=== PATIENT | male | born 1930 | race American Indian/Alaskan Native ===

== ENCOUNTER 2016-11-21 12:52 | Inpatient (IN) | payer MEDICARE ==
[~2016-11-21 12:52] MED LIST: GARAMYCIN ONE; NACL 0.9% 250ML 250 ML ONE
[2016-11-21] MEDS ORDERED: TYLENOL PO PRN (13:06)
[2016-11-21] MEDS ORDERED: DUONEB 0.5 MG-3 MG/3 ML SOLN IH PRN (13:06)
[2016-11-21] MEDS ORDERED: ZOFRAN IV PRN (13:06)
[2016-11-21] MEDS ORDERED: DULCOLAX PR PRN (13:06)
[2016-11-21] MEDS ORDERED: MILK OF MAGNESIA PO PRN (13:06)
[2016-11-21] MEDS ORDERED: ZOSYN/NS 4.5GM/100ML 4.5 GM/100 ML VIAL IV ONE (13:07)
[2016-11-21] MEDS ORDERED: NACL 0.9% 1000 ML 1,000 ML ONE (13:27)
[2016-11-21 13:38] LABS: Basophils % (Auto) 0.2 % (0.0-1.8); Eosinophils % (Auto) 0.2 % (0.0-4.3); Hematocrit 33.6 % (35.5-45.6); Mean Corpuscular HGB Conc 33 % (32-34); Mean Corpuscular Hemoglobin 30 pg (28-32); Mean Corpuscular Volume 92 fl (84-94); Platelet Count 235 K/mm3 (140-440); Red Blood Count 3.67 M/mm3 (3.65-5.03); Red Cell Distribution Width 14.5 % (13.2-15.2); White Blood Count 14.2 K/mm3 (4.5-11.0)
[2016-11-21] MEDS ORDERED: PEPCID IV ONE (13:45)
[2016-11-21] MEDS ORDERED: REGLAN ONE (13:45)
[2016-11-21 13:51] LABS: INR 2.26 (0.87-1.13); Partial Thromboplastin Time 38.3 Sec. (24.2-36.6)
[2016-11-21 14:00] LABS: Albumin 3.3 g/dL (3.9-5); BUN/Creatinine Ratio 22.77; Calcium 8.6 mg/dL (8.4-10.2); Potassium 4.4 mmol/L (3.6-5.0)
[2016-11-21] MEDS ORDERED: VANCOMYCIN/NS 1 GM/250 ML 1 GM/250 ML BAG IV NR (14:00)
[2016-11-21] MEDS ORDERED: ZOSYN/NS 3.375GM/50ML 3.375 GM/50 ML BAG IV ONE (14:00)
[2016-11-21 14:25] LABS: Total Protein 6.5 g/dL (6.3-8.2)
--- NOTE | 2016-11-21 14:31 | Anesthesia Day of Surgery ---
Anesthesia Day of Surgery - Day of Surgery Patient Examined: Yes Patient H&P Reviewed: Yes Patient is NPO: Yes (since 10 am - 2 bites of food prior to ten)
--- NOTE | 2016-11-21 14:31 | Anesthesia Consultation ---
Anesthesia Consult and Med Hx - Airway Anesthetic Teeth Evaluation: Partials ROM Head & Neck: Adequate Mental/Hyoid Distance: Adequate Mallampati Class: Class II Intubation Access Assessment: Probably Good - Pre-Operative Health Status ASA Pre-Surgery Classification: ASA3 Proposed Anesthetic Plan: General - Cardiovascular System Hx Hypertension: Yes Hx Coronary Artery Disease: Yes Hx Percutaneous Transluminal Coronary Angioplasty (PTCA): Yes (cardiac stent 2000) - Central Nervous System Hx Neuromuscular Disorder: Yes (osteoarthritis) - Gastrointestinal Hx Ulcer: No (prostate) - Endocrine Hx Non-Insulin Dependent Diabetes: Yes - Additional Comments Anesthesia Medical History Comments: prostate enlrgement
[2016-11-21] MEDS ORDERED: DIPRIVAN 10 MG/ML IV ONE (14:33)
[2016-11-21] MEDS ORDERED: SUBLIMAZE ONE (14:34)
[2016-11-21] MEDS ORDERED: NEOSTIGMINE ONE (14:34)
[2016-11-21] MEDS ORDERED: NACL 0.9% 250ML IV ONE (15:21)
[2016-11-21] MEDS ORDERED: ZEMURON IV ONE (15:26)
[2016-11-21] MEDS ORDERED: XYLOCAINE MPF 2% ONE (15:26)
[2016-11-21] MEDS ORDERED: ROBINUL ONE (15:27)
[2016-11-21] MEDS ORDERED: ZOFRAN ONE (15:41)
[2016-11-21] MEDS ORDERED: NORCO 5/325 PO PRN (15:56)
[2016-11-21] MEDS ORDERED: D5W/0.45% NACL/KCL 20 MEQ 20 MEQ/1,000 ML BAG IV SCH (16:00)
[2016-11-21] MEDS ORDERED: VANCOMYCIN/NS 1 GM/250 ML 1 GM/250 ML BAG IV SCH (16:00)
--- NOTE | 2016-11-21 16:05 | Post Operative Note ---
Date of procedure: 11/21/16 Pre-op diagnosis: cellulitis severe epididymitis Post-op diagnosis: same Findings: severe erythems eary abcess Procedure: L scrotal abcess r orch Anesthesia: GETA Surgeon: LEONIE CID Estimated blood loss: none Pathology: list (r testes) Specimen disposition: to lab Condition: stable Disposition: PACU
[2016-11-21] MEDS ORDERED: PROVENTIL IH ONE (16:25)
[2016-11-21] MEDS ORDERED: PROVENTIL IH PRN (16:29)
--- NOTE | 2016-11-21 19:50 | Operative Report ---
PREOPERATIVE DIAGNOSES: Scrotal cellulitis, epididymitis, left side with extending to the abdominal wall, impending Renetta's gangrene. POSTOPERATIVE DIAGNOSES: Scrotal cellulitis, epididymitis, left side with extending to the abdominal wall, impending Renetta's gangrene with severe scrotal cellulitis and epididymitis. PROCEDURE: Left scrotal exploration cultures, drainage of scrotum with left orchiectomy. SURGEON: Woody Alvares MD ANESTHESIA: General. FINDINGS: This is a gentleman who presented with severe agonizing left scrotal pain, swelling of the scrotum, penis and lower abdominal wall with erythema and heat and intermittent chills. He now presents for treatment. He is diabetic. DESCRIPTION OF PROCEDURE: The patient brought to the operating room and placed on the operating table. Following induction of anesthesia, placed in supine position, prepped and draped in usual sterile fashion. Tomlin catheter was placed and horizontal incision made over the swollen left hemiscrotum. The scrotal fascia layers weeped with edema and fluid. This incision was carried through the scrotum down to the tunica vaginalis. This was opened. There was some dark yellow fluid. Cultures were taken. The testis and the lower pole of the epididymis was totally adherent to the scrotal fascia. The testis size was approximately 2 cm at max. It was very small, but the cord was very thickened and edematous. With blunt and sharp dissection, we freed off the epididymis and testis and cord. The gubernaculum was tied and the cord was divided into two segments and triply tied and ligated. Specimen was removed. Almost immediately there was a markedly improved skin, less edema, better blood pressure and lower temperature. Wound was copiously irrigated. The patient tolerated the procedure well. A Javier drain was placed in dependent portion of the scrotum. Superficial fascia was closed with 2-0 chromic and skin with 2-0 chromic. The patient tolerated the procedure well. No significant complications. Minimal blood loss and was brought to recovery in stable condition. JOB# [id number] LINA/SUZAN
[2016-11-21] MEDS: PEPCID IV SCH (21:51)
[2016-11-21] MEDS ORDERED: ZOSYN/NS 4.5GM/100ML 4.5 GM/100 ML VIAL IV SCH (22:00)
--- NOTE | 2016-11-21 23:52 | History and Physical Report ---
History of Present Illness Date of examination: 11/21/16 Date of admission: 11/21/16 13:08 Chief complaint: Chief complaint: scrotal abscess. 1 week. History of present illness: History of present illness: 86-year-old male with history of hypertension and glaucoma COPD type 2 diabetes diagnosed hypertriglyceridemia and have more I hypertension gastroesophageal reflux disease comes in for scrotal abscess incision and drainage. Patient postop being admitted to the medical service and surgery with Dr. Cameron to follow up with the patient. Patient has been running high fevers and severe scrotal edema present. Past History Past Medical History: COPD, GERD, hypertension, hyperlipidemia Past Surgical History: Other (peripheral artery surgeries.) Social history: smoking (smokes about 5 cigarettes a day.) Family history: hypertension Medications and Allergies Allergies Allergy/AdvReac Type Severity Reaction Status Date / Time No Known Drug Allergies Allergy Unknown Verified 11/21/16 13:08 Home Medications Medication Instructions Recorded Confirmed Last Taken Type Albuterol Sulfate [Proair Hfa] 1 puff DAILY 11/21/16 11/21/16 11/20/16 History Bimatoprost 0.01%(Nf) [Lumigan 1 drop OU DAILY 11/21/16 11/21/16 11/20/16 History 0.01%(Nf)] Dorzolamide HCl/Timolol Maleat 1 drop OU DAILY 11/21/16 11/21/16 11/20/16 History [Dorzolamide-Timolol Eye Drops] Fenofibrate Nanocrystallized 145 mg PO DAILY 11/21/16 11/21/16 11/20/16 History [Fenofibrate] Hydrochlorothiazide [HCTZ] 25 mg PO DAILY 11/21/16 11/21/16 3 Months Ago History Levalbuterol Tartrate [Xopenex Hfa] 1 puff IH DAILY 11/21/16 11/21/16 11/20/16 History Nateglinide [Starlix] 120 mg PO DAILY 11/21/16 11/21/16 11/20/16 History Pantoprazole [Protonix TAB] 20 mg QDAY 11/21/16 11/21/16 11/20/16 History Valsartan [Valsartan] 80 mg PO DAILY 11/21/16 11/21/16 11/20/16 History Warfarin Sodium [Warfarin Sodium] 5 mg PO DAILY 11/21/16 11/21/16 11/21/16 10: 00 History traMADol [Ultram] 50 mg PO Q6HR PRN 11/21/16 11/21/16 11/20/16 History Active Meds: Active Medications Acetaminophen (Tylenol) 650 mg PO Q4H PRN PRN Reason: Pain MILD(1-3)/Fever >100.5/DIAZ Acetaminophen/Hydrocodone Bitart ([place]odge 5/325) 2 each PO Q6H PRN PRN Reason: Pain, Moderate (4-6) Albuterol (Proventil) 2.5 mg IH PRN PRN PRN Reason: Shortness Of Breath Last Admin: 11/21/16 16:36 Dose: 2.5 mg Albuterol/Ipratropium (Duoneb 0.5 Mg-3 Mg/3 Ml Soln) 1 ampul IH Q6HRT PRN PRN Reason: Wheezing Bisacodyl (Dulcolax) 10 mg MT QDAY PRN PRN Reason: Constipation unrelieved by [facility] Famotidine (Pepcid) 20 mg IV BID [facility] Last Admin: 11/21/16 21:51 Dose: 20 mg Potassium Chloride/Dextrose/Sod Cl (D5w/0.45% Nacl/Kcl 20 Meq) 20 meq in 1,000 mls @ 125 mls/hr IV DIRECT BENEDICTO Vancomycin HCl (Vancomycin/Ns 1 Gm/250 Ml) 1 gm in 250 mls @ 166.667 mls/hr IV Q24H [facility] Piperacillin Sod/Tazobactam Sod (Zosyn/Ns 2.25 Gm/50ml) 2.25 gm in 50 mls @ 100 mls/hr IV Q6H [facility] Insulin Aspart (Novolog) 0 units SUB-Q ACHS BENEDICTO PRN Reason: Protocol Magnesium Hydroxide (Milk Of Magnesia) 30 ml PO Q4H PRN PRN Reason: Constipation Ondansetron HCl (Zofran) 4 mg IV Q8H PRN PRN Reason: N/V unrelieved by Reglan Review of Systems All systems: negative Constitutional: no weight loss, no weight gain Ears, nose, mouth and throat: no dysphagia, no hoarseness, no sore throat Cardiovascular: chest pain, orthopnea Respiratory: dyspnea on exertion, congestion Gastrointestinal: nausea, vomiting, diarrhea Genitourinary Male: dysuria, hematuria, no flank pain, no discharge, no urinary hesitancy Musculoskeletal: no neck stiffness, no neck pain Integumentary: pruritis, redness (scrotum.) Neurological: seizures, syncope Psychiatric: anxiety, paranoia, depression Endocrine: no cold intolerance, no heat intolerance, no polyphagia, no excessive thirst, no polydipsia Hematologic/Lymphatic: no easy bruising, no easy bleeding Allergic/Immunologic: no urticaria, no allergic rhinitis, no wheezing Exam - Constitutional Vitals: Temp Pulse Resp BP Pulse Ox 98.1 F 73 18 118/76 95 11/21/16 20:00 11/21/16 20:00 11/21/16 20:00 11/21/16 20:00 11/21/16 21:02 General appearance: Present: no acute distress, well-nourished - EENT Eyes: Present: PERRL ENT: hearing intact, clear oral mucosa - Neck Neck: Present: supple, normal ROM - Respiratory Respiratory effort: normal Respiratory: bilateral: CTA - Cardiovascular Heart Sounds: Present: S1 & S2. Absent: rub, click - Extremities Extremities: pulses symmetrical, No edema Peripheral Pulses: within normal limits - Abdominal General gastrointestinal: Present: soft, non-tender, non-distended, normal bowel sounds Male genitourinary: Present: normal - Integumentary Integumentary: Present: clear, warm, dry - Musculoskeletal Musculoskeletal: gait normal, strength equal bilaterally - Psychiatric Psychiatric: appropriate mood/affect, intact judgment & insight - Neurologic Neurologic: CNII-XII intact, moves all extremities Results - Labs CBC & Chem 7: 11/21/16 13:31 11/21/16 13:05 Labs: Laboratory Last Values WBC 14.2 K/mm3 (4.5-11.0) H 11/21/16 13:31 RBC 3.67 M/mm3 (3.65-5.03) 11/21/16 13:31 Hgb 11.0 gm/dl (11.8-15.2) L 11/21/16 13:31 Hct 33.6 % (35.5-45.6) L 11/21/16 13:31 MCV 92 fl (84-94) 11/21/16 13:31 MCH 30 pg (28-32) 11/21/16 13:31 MCHC 33 % (32-34) 11/21/16 13:31 RDW 14.5 % (13.2-15.2) 11/21/16 13:31 Plt Count 235 K/mm3 (140-440) 11/21/16 13:31 Lymph % (Auto) 6.5 % (13.4-35.0) L 11/21/16 13:31 [place] % (Auto) 9.1 % (0.0-7.3) H 11/21/16 13:31 Eos % (Auto) 0.2 % (0.0-4.3) 11/21/16 13:31 Baso % (Auto) 0.2 % (0.0-1.8) 11/21/16 13:31 Lymph # 0.9 K/mm3 (1.2-5.4) L 11/21/16 13:31 [place] # 1.3 K/mm3 (0.0-0.8) H 11/21/16 13:31 Eos # 0.0 K/mm3 (0.0-0.4) 11/21/16 13:31 Baso # 0.0 K/mm3 (0.0-0.1) 11/21/16 13:31 Seg Neutrophils % 84.0 % (40.0-70.0) H 11/21/16 13:31 Seg Neutrophils # 11.9 K/mm3 (1.8-7.7) H 11/21/16 13:31 PT 25.0 Sec. (12.2-14.9) H 11/21/16 13:31 INR 2.26 (0.87-1.13) H 11/21/16 13:31 APTT 38.3 Sec. (24.2-36.6) H 11/21/16 13:31 Sodium 138 mmol/L (137-145) 11/21/16 13:05 Potassium 4.4 mmol/L (3.6-5.0) 11/21/16 13:05 Chloride 101.0 mmol/L (98-107) 11/21/16 13:05 Carbon Dioxide 21 mmol/L (22-30) L 11/21/16 13:05 Anion Gap 20 mmol/L 11/21/16 13:05 BUN 41 mg/dL (9-20) H 11/21/16 13:05 Creatinine 1.8 mg/dL (0.8-1.5) H 11/21/16 13:05 Estimated GFR 44 ml/min 11/21/16 13:05 BUN/Creatinine Ratio 22.77 % 11/21/16 13:05 Glucose 107 mg/dL (75-100) H 11/21/16 13:05 POC Glucose 199 (70-105) H 11/21/16 22:13 Calcium 8.6 mg/dL (8.4-10.2) 11/21/16 13:05 Total Bilirubin 1.0 mg/dL (0.1-1.2) 11/21/16 13:05 AST 55 units/L (5-40) H 11/21/16 13:05 ALT 33 units/L (7-56) 11/21/16 13:05 Alkaline Phosphatase 55 units/L (35-129) 11/21/16 13:05 Total Protein 6.5 g/dL (6.3-8.2) 11/21/16 13:05 Albumin 3.3 g/dL (3.9-5) L 11/21/16 13:05 Albumin/Globulin Ratio 1.0 % 11/21/16 13:05 Blood Type A POSITIVE 11/21/16 14:00 Antibody Screen Negative 11/21/16 14:00 Assessment and Plan Advance Directives: Yes - Patient Problems (1) Cellulitis of scrotum Current Visit: Yes Status: Acute Plan to address problem: Patient with first-time episode of scrotal swelling and redness and pain. Comes in for incision and drainage. Incision and drainage done by Dr. Alvares. Broad spectrum antibiotics Zosyn started for the scrotal cellulitis and abscess. (2) HTN (hypertension) Current Visit: Yes Status: Chronic Qualifiers: Hypertension type: essential hypertension Qualified Code(s): I10 - Essential (primary) hypertension Plan to address problem: Continue Diovan 80 mg once a day. (3) Glaucoma Current Visit: Yes Status: Acute Qualifiers: Glaucoma type: G Open angle glaucoma type: O Primary angle closure glaucoma type: P Laterality: L Glaucoma stage: G Plan to address problem: Continue eyedrops. (4) Hypertriglyceridemia Current Visit: Yes Status: Chronic Plan to address problem: Continue fenofibrate (5) T2DM (type 2 diabetes mellitus) Current Visit: Yes Status: Chronic Qualifiers: Diabetes mellitus complication status: without complication Diabetes mellitus complication detail: D Diabetic retinopathy severity: D Proliferative retinopathy type: P Diabetes mellitus macular edema: D Diabetes mellitus email administrator insulin use: without snf use Laterality: L Chronic kidney disease stage: C Qualified Code(s): E11.9 - Type 2 diabetes mellitus without complications Plan to address problem: Patient on Starlix which is not available in the hospital will start him on glimepiride 2 mg once a day and give him coverage. (6) GERD (gastroesophageal reflux disease) Current Visit: Yes Status: Chronic Qualifiers: Esophagitis presence: without esophagitis Qualified Code(s): K21.9 - Gastro -esophageal reflux disease without esophagitis Plan to address problem: Continue Protonix 40 mg once a day. (7) DVT prophylaxis Current Visit: Yes Status: Acute Plan to address problem: Patient on Lovenox 40 mg subcutaneous once daily.
[2016-11-21] MEDS: ZOSYN/NS 2.25 GM/50ML 2.25 GM/50 ML BAG IV SCH ×2 (23:53→23:57)
[2016-11-21] MEDS: NOVOLOG SUB-Q SCH (23:53)
[2016-11-22] MEDS: VANCOMYCIN/NS 1 GM/250 ML 1 GM/250 ML BAG IV SCH (04:32)
[2016-11-22] MEDS: ZOSYN/NS 2.25 GM/50ML 2.25 GM/50 ML BAG IV SCH ×3 (06:07→18:05)
[2016-11-22] MEDS: NOVOLOG SUB-Q SCH ×4 (07:30→21:18)
[2016-11-22] MEDS ORDERED: PROAIR IH PRN (07:44)
--- NOTE | 2016-11-22 08:57 | Progress Note ---
Assessment and Plan markedly improved edema down 70 % grayson replaced continue iv abs home thursday if continues to improve Subjective Date of service: 11/22/16 Principal diagnosis: scrotal abcess Objective - Constitutional Vitals: Vital Signs - 12hr 11/21/16 11/22/16 21:02 00:34 Temperature 98.1 F Pulse Rate [ 68 Right] Respiratory 18 Rate Blood Pressure 120/56 [Right Arm] O2 Sat by Pulse 95 98 Oximetry General appearance: Present: no acute distress - Neck Neck: supple - Respiratory Respiratory effort: normal Extremities: no ischemia - Genitourinary Male genitourinary: penile edema - Labs CBC & Chem 7: 11/21/16 13:31 11/21/16 13:05 Labs: Abnormal lab results 11/21/16 11/21/16 11/21/16 Range/Units 13:05 13:22 13:31 WBC 14.2 H (4.5-11.0) K/mm3 Hgb 11.0 L (11.8-15.2) gm/dl Hct 33.6 L (35.5-45.6) % Lymph % (Auto) 6.5 L (13.4-35.0) % [place] % (Auto) 9.1 H (0.0-7.3) % Lymph # 0.9 L (1.2-5.4) K/mm3 [place] # 1.3 H (0.0-0.8) K/mm3 Seg Neutrophils % 84.0 H (40.0-70.0) % Seg Neutrophils # 11.9 H (1.8-7.7) K/mm3 PT (12.2-14.9) Sec. INR (0.87-1.13) APTT (24.2-36.6) Sec. Carbon Dioxide 21 L (22-30) mmol/L BUN 41 H (9-20) mg/dL Creatinine 1.8 H (0.8-1.5) mg/dL Glucose 107 H (75-100) mg/dL POC Glucose 111 H (70-105) AST 55 H (5-40) units/L Albumin 3.3 L (3.9-5) g/dL 11/21/16 11/21/16 Range/Units 13:31 22:13 WBC (4.5-11.0) K/mm3 Hgb (11.8-15.2) gm/dl Hct (35.5-45.6) % Lymph % (Auto) (13.4-35.0) % [place] % (Auto) (0.0-7.3) % Lymph # (1.2-5.4) K/mm3 [place] # (0.0-0.8) K/mm3 Seg Neutrophils % (40.0-70.0) % Seg Neutrophils # (1.8-7.7) K/mm3 PT 25.0 H (12.2-14.9) Sec. INR 2.26 H (0.87-1.13) APTT 38.3 H (24.2-36.6) Sec. Carbon Dioxide (22-30) mmol/L BUN (9-20) mg/dL Creatinine (0.8-1.5) mg/dL Glucose (75-100) mg/dL POC Glucose 199 H (70-105) AST (5-40) units/L Albumin (3.9-5) g/dL
[2016-11-22] MEDS ORDERED: NACL 0.45% 500 ML IV SCH (09:00)
[2016-11-22] MEDS ORDERED: NATEGLINIDE 120 MG PO SCH (10:00)
[2016-11-22] MEDS: PEPCID IV SCH ×2 (10:00→21:12)
[2016-11-22] MEDS ORDERED: LEVALBUTEROL TARTRATE IH SCH (10:00)
[2016-11-22] MEDS ORDERED: BIMATOPROST 0.01% OU SCH (10:00)
[2016-11-22] MEDS ORDERED: HCTZ PO SCH (10:00)
[2016-11-22] MEDS: PROTONIX PO SCH (10:00)
[2016-11-22] MEDS ORDERED: NON-FORMULARY (Dorzolamide Hcl/Timolol Maleat [Dorzolamide-Timolol Eye Drops] 1 DROP) OU SCH (10:00)
[2016-11-22] MEDS: TRICOR PO SCH (10:30)
[2016-11-22] MEDS: PROVENTIL IH SCH (10:40)
--- NOTE | 2016-11-22 12:48 | Progress Note ---
Assessment and Plan Assessment and plan: 86-year-old male with history of hypertension and glaucoma COPD type 2 diabetes diagnosed hypertriglyceridemia and have more I hypertension gastroesophageal reflux disease comes in for scrotal abscess incision and drainage. Patient postop admitted to the medical service and surgery with Dr. Cameron to follow up with the patient. Patient has been running high fevers and severe scrotal edema present. - Patient Problems (1) Cellulitis of scrotum Current Visit: Yes Status: Acute Plan to address problem: Patient with first-time episode of scrotal swelling and redness and pain. Status post incision and drainage by Dr. Alvares. Broad spectrum antibiotics Zosyn started for the scrotal cellulitis and abscess. ID consult. Tomlin catheter is changed today. Swelling and edema improved per her urologist. Hope to discharge in a.m. if remains fever free. Cultures reviewed no growth at this time. No urinary culture was obtained. Case discussed with urologist today. (2) HTN (hypertension) Current Visit: Yes Status: Chronic Qualifiers: Hypertension type: essential hypertension Qualified Code(s): I10 - Essential (primary) hypertension Plan to address problem: Continue Diovan 80 mg once a day. (3) Glaucoma Current Visit: Yes Status: Acute Qualifiers: Glaucoma type: G Open angle glaucoma type: O Primary angle closure glaucoma type: P Laterality: L Glaucoma stage: G Plan to address problem: Continue eyedrops. (4) Hypertriglyceridemia Current Visit: Yes Status: Chronic Plan to address problem: Continue fenofibrate (5) T2DM (type 2 diabetes mellitus) Current Visit: Yes Status: Chronic Qualifiers: Diabetes mellitus complication status: without complication Diabetes mellitus complication detail: D Diabetic retinopathy severity: D Proliferative retinopathy type: P Diabetes mellitus macular edema: D Diabetes mellitus keno terminal operator insulin use: without keno terminal operator use Laterality: L Chronic kidney disease stage: C Qualified Code(s): E11.9 - Type 2 diabetes mellitus without complications Plan to address problem: Patient on Starlix which is not available in the hospital will start him on glimepiride 2 mg once a day and give him coverage. (6) GERD (gastroesophageal reflux disease) Current Visit: Yes Status: Chronic Qualifiers: Esophagitis presence: without esophagitis Qualified Code(s): K21.9 - Gastro -esophageal reflux disease without esophagitis Plan to address problem: Continue Protonix 40 mg once a day. (7) Debility He reports multiple falls in the past. Ambulates with a walker. Will obtain PT evaluation and treat. He felt it was due to the infection. (8) DVT prophylaxis Current Visit: Yes Status: Acute Plan to address problem: Patient on Lovenox 40 mg subcutaneous once daily. Plan of care discussed in detail with patient and family member at the bedside. History Interval history: Patient seen and examined, tolerating diet. not much pain. reports multiple falls prior to admission and has been going on for a fews. Hospitalist Physical - Physical exam Narrative exam: VITAL SIGNS: Reviewed. GENERAL: The patient appeared well nourished and normally developed. Vital signs as documented. HEAD: No signs of head trauma. EYES: Pupils are equal. Extraocular motions intact. EARS: Hearing grossly intact. MOUTH: Oropharynx is normal. NECK: No adenopathy, no JVD. CHEST: Chest with clear breath sounds bilaterally. No wheezes, rales, or rhonchi. CARDIAC: Regular rate and rhythm. S1 and S2, without murmurs, gallops, or rubs. VASCULAR: No Edema. Peripheral pulses normal and equal in all extremities. ABDOMEN: Soft, without detectable tenderness. No sign of distention. No rebound or guarding, and no masses palpated. Bowel Sounds normal. MUSCULOSKELETAL: Good range of motion of all major joints. Extremities without clubbing, cyanosis or edema. NEUROLOGIC EXAM: Alert and oriented x 3. No focal sensory or strength deficits. Speech normal. Follows commands. PSYCHIATRIC: Mood normal. SKIN: dressing in place at the scrotal area : scrotal edema. Tomlin, Some tenderness. - Constitutional Vitals: Temp Pulse Resp BP Pulse Ox 98.1 F 68 18 120/56 98 11/22/16 00:34 11/22/16 00:34 11/22/16 00:34 11/22/16 00:34 11/22/16 00:34 General appearance: Present: no acute distress Results - Labs CBC & Chem 7: 11/21/16 13:31 11/21/16 13:05 Labs: Laboratory Last Values WBC 14.2 K/mm3 (4.5-11.0) H 11/21/16 13:31 RBC 3.67 M/mm3 (3.65-5.03) 11/21/16 13:31 Hgb 11.0 gm/dl (11.8-15.2) L 11/21/16 13:31 Hct 33.6 % (35.5-45.6) L 11/21/16 13:31 MCV 92 fl (84-94) 11/21/16 13:31 MCH 30 pg (28-32) 11/21/16 13:31 MCHC 33 % (32-34) 11/21/16 13:31 RDW 14.5 % (13.2-15.2) 11/21/16 13:31 Plt Count 235 K/mm3 (140-440) 11/21/16 13:31 Lymph % (Auto) 6.5 % (13.4-35.0) L 11/21/16 13:31 [place] % (Auto) 9.1 % (0.0-7.3) H 11/21/16 13:31 Eos % (Auto) 0.2 % (0.0-4.3) 11/21/16 13:31 Baso % (Auto) 0.2 % (0.0-1.8) 11/21/16 13:31 Lymph # 0.9 K/mm3 (1.2-5.4) L 11/21/16 13:31 [place] # 1.3 K/mm3 (0.0-0.8) H 11/21/16 13:31 Eos # 0.0 K/mm3 (0.0-0.4) 11/21/16 13:31 Baso # 0.0 K/mm3 (0.0-0.1) 11/21/16 13:31 Seg Neutrophils % 84.0 % (40.0-70.0) H 11/21/16 13:31 Seg Neutrophils # 11.9 K/mm3 (1.8-7.7) H 11/21/16 13:31 PT 25.0 Sec. (12.2-14.9) H 11/21/16 13:31 INR 2.26 (0.87-1.13) H 11/21/16 13:31 APTT 38.3 Sec. (24.2-36.6) H 11/21/16 13:31 Sodium 138 mmol/L (137-145) 11/21/16 13:05 Potassium 4.4 mmol/L (3.6-5.0) 11/21/16 13:05 Chloride 101.0 mmol/L (98-107) 11/21/16 13:05 Carbon Dioxide 21 mmol/L (22-30) L 11/21/16 13:05 Anion Gap 20 mmol/L 11/21/16 13:05 BUN 41 mg/dL (9-20) H 11/21/16 13:05 Creatinine 1.8 mg/dL (0.8-1.5) H 11/21/16 13:05 Estimated GFR 44 ml/min 11/21/16 13:05 BUN/Creatinine Ratio 22.77 % 11/21/16 13:05 Glucose 107 mg/dL (75-100) H 11/21/16 13:05 POC Glucose 199 (70-105) H 11/21/16 22:13 Calcium 8.6 mg/dL (8.4-10.2) 11/21/16 13:05 Total Bilirubin 1.0 mg/dL (0.1-1.2) 11/21/16 13:05 AST 55 units/L (5-40) H 11/21/16 13:05 ALT 33 units/L (7-56) 11/21/16 13:05 Alkaline Phosphatase 55 units/L (35-129) 11/21/16 13:05 Total Protein 6.5 g/dL (6.3-8.2) 11/21/16 13:05 Albumin 3.3 g/dL (3.9-5) L 11/21/16 13:05 Albumin/Globulin Ratio 1.0 % 11/21/16 13:05 Blood Type A POSITIVE 11/21/16 14:00 Antibody Screen Negative 11/21/16 14:00
[2016-11-22] MEDS: ZOSYN/NS 4.5GM/100ML 4.5 GM/100 ML VIAL IV SCH ×2 (14:00→15:00)
[2016-11-22 15:14] LABS: Anion Gap 16 mmol/L; Blood Urea Nitrogen 22 mg/dL (9-20); Carbon Dioxide 21 mmol/L (22-30); Chloride 106.9 mmol/L (98-107); Glucose 139 mg/dL (75-100); Potassium 4.1 mmol/L (3.6-5.0); Sodium 140 mmol/L (137-145)
[2016-11-22] MEDS ORDERED: XALATAN 0.005% OU SCH (18:00)
[2016-11-23] MEDS: ZOSYN/NS 4.5GM/100ML 4.5 GM/100 ML VIAL IV SCH ×3 (00:23→14:00)
[2016-11-23] MEDS: ZOSYN/NS 2.25 GM/50ML 2.25 GM/50 ML BAG IV SCH ×3 (00:25→12:00)
[2016-11-23] MEDS: VANCOMYCIN/NS 1 GM/250 ML 1 GM/250 ML BAG IV SCH (01:59)
--- NOTE | 2016-11-23 07:00 | Discharge Summary ---
Providers - Providers Date of Admission: 11/21/16 13:08 Date of discharge: 11/23/16 Attending physician: TARI COLLINS MD 11/21/16 13:05 Consult to Anesthesiology [CONS] Routine Consulting Provider: KAYLEE ANESTHESIA BRUCE MURO Reason For Exam: ADD ON SURGERY FOR TODAY 11/21/16 14:57 Consult to Physician [CONS] Routine Consulting Provider: LEONIE CID Reason For Exam: SCROTAL ABCESS,DM,HX BLOOD CLOTS Place consult to:: NED Notified:: NO 11/21/16 15:56 Consult to Physician [CONS] Stat Consulting Provider: Reason For Exam: diabetes Place consult to:: ned Notified:: yes Was contact made?: Yes 11/22/16 12:40 Consult to Physician [CONS] Routine Consulting Provider: JEAN-PIERRE MORTON Reason For Exam: epdidmytis 11/22/16 12:46 Physical Therapy Evaluation and Treat [CONS] Routine Comment: Reason For Exam: debility Primary care physician: [employer]EC[employer]IVE [employer]ER Hospitalization Reason for admission: epididymitis Hospital course: Patient is an 86-year-old male with history of hypertension and glaucoma COPD type 2 diabetes diagnosed hypertriglyceridemia and have more I hypertension gastroesophageal reflux disease comes in for scrotal abscess incision and drainage. Patient postop admitted to the medical service and surgery with Dr. Cameron to follow up with the patient. Patient has been running high fevers and severe scrotal edema present requiring intervention. Post intervention drain was placed with good drainage. Pain improved significantly. The patient today' s clinically stable for discharge renal function was abnormal initially but with IV fluids this returned also to baseline. He is to complete antibiotics with Keflex outpatient. And to follow with urology also discussed with him the importance of monitoring his Coumadin level considering that he is not on antibiotics patient verbalized understanding. Physical therapy was also arranged for home due to ablation issues which has been experiencing in the past. Grayson catheter will be discontinued outpatient. - Patient Problems (1) Cellulitis of scrotum (2) epididymitis (3) HTN (hypertension) (4) Glaucoma (5) Hypertriglyceridemia (6) T2DM (type 2 diabetes mellitus) (7) GERD (gastroesophageal reflux disease) (8) Debility (9) acute kidney injury likely secondary to vasomotor nephropathy present on admission Disposition: DC/TX HOME UNDER HOME HEALTH Time spent for discharge: 35 mins Core Measure Documentation - Palliative Care Palliative Care/ Comfort Measures: Not Applicable - Core Measures Any of the following diagnoses?: none - VTE Discharge Requirements Deep Vein Thrombosis/Pulmonary Embolism Present on Admission: No Exam - Physical Exam Narrative exam: VITAL SIGNS: Reviewed. GENERAL: The patient appeared well nourished and normally developed. Vital signs as documented. HEAD: No signs of head trauma. EYES: Pupils are equal. Extraocular motions intact. EARS: Hearing grossly intact. MOUTH: Oropharynx is normal. NECK: No adenopathy, no JVD. CHEST: Chest with clear breath sounds bilaterally. No wheezes, rales, or rhonchi. CARDIAC: Regular rate and rhythm. S1 and S2, without murmurs, gallops, or rubs. VASCULAR: No Edema. Peripheral pulses normal and equal in all extremities. ABDOMEN: Soft, without detectable tenderness. No sign of distention. No rebound or guarding, and no masses palpated. Bowel Sounds normal. MUSCULOSKELETAL: Good range of motion of all major joints. Extremities without clubbing, cyanosis or edema. NEUROLOGIC EXAM: Alert and oriented x 3. No focal sensory or strength deficits. Speech normal. Follows commands. PSYCHIATRIC: Mood normal. SKIN: dressing in place at the scrotal area : scrotal edema. Grayson, Some tenderness. - Constitutional Vitals: Temp Pulse Resp BP Pulse Ox 98.0 F 66 20 135/66 97 11/23/16 04:00 11/23/16 04:00 11/23/16 04:00 11/23/16 04:00 11/23/16 04:00 Plan Activity: advance as tolerated, fall precautions Diet: diabetic Special Instructions: record daily BP diary, record blood sugar diary Additional Instructions: grayson to be removed by Urologist at the Office. Resume warfarin when ok with urologist. Monitor INR closely as antibiotics can affect therapeutic range Follow up with: PRIMARY MD LEWIS [Primary Care Provider] - 7 Days LEONIE CID MD [Staff Physician] - 3 Days Prescriptions: Cephalexin [Keflex] 500 mg PO Q12HR #20 cap HYDROcodone/APAP 5-325 [[place] 5-325 mg TAB] 2 each PO Q6H PRN #20 tablet PRN Reason: Pain, Moderate (4-6) Other Discharge Orders: Complete Blood Count Auto Diff Location: Determined By Patient
--- NOTE | 2016-11-23 08:05 | Progress Note ---
Subjective Date of service: 11/23/16 Principal diagnosis: scrotal abcess Interval history: improved ok for dischage if ok medically with gryason Objective - Constitutional Vitals: Vital Signs - 12hr 11/22/16 11/22/16 11/22/16 20:08 20:48 20:54 Temperature 97.5 F L 99.5 F Pulse Rate [ 100 H 70 Right] Respiratory 16 20 Rate Blood Pressure 118/78 136/63 [Right Arm] O2 Sat by Pulse 97 99 Oximetry 11/22/16 11/23/16 11/23/16 22:00 00:00 04:00 Temperature 99.2 F 98.0 F Pulse Rate [ 67 66 Right] Respiratory 18 20 20 Rate Blood Pressure 131/64 135/66 [Right Arm] O2 Sat by Pulse 97 97 Oximetry - Labs CBC & Chem 7: 11/21/16 13:31 11/22/16 14:27 Labs: Abnormal lab results 11/22/16 11/22/16 11/22/16 Range/Units 14:20 14:27 16:48 Carbon Dioxide 21 L (22-30) mmol/L BUN 22 H (9-20) mg/dL Glucose 139 H (75-100) mg/dL POC Glucose 161 H 170 H (70-105) Calcium 8.0 L (8.4-10.2) mg/dL 11/22/16 Range/Units 21:14 Carbon Dioxide (22-30) mmol/L BUN (9-20) mg/dL Glucose (75-100) mg/dL POC Glucose 119 H (70-105) Calcium (8.4-10.2) mg/dL
[2016-11-23 08:29] VITALS: BP 124/59
[2016-11-23] MEDS: NOVOLOG SUB-Q SCH ×2 (08:32→11:43)
[2016-11-23 08:39] LABS: Mean Corpuscular HGB Conc 34 % (32-34); Mean Corpuscular Hemoglobin 31 pg (28-32); Mean Corpuscular Volume 90 fl (84-94); Platelet Count 212 K/mm3 (140-440); Red Blood Count 3.23 M/mm3 (3.65-5.03); Red Cell Distribution Width 14.5 % (13.2-15.2); White Blood Count 8.2 K/mm3 (4.5-11.0)
[2016-11-23 09:01] LABS: Anion Gap 15 mmol/L; Blood Urea Nitrogen 14 mg/dL (9-20); Calcium 8.1 mg/dL (8.4-10.2); Carbon Dioxide 23 mmol/L (22-30); Chloride 106.5 mmol/L (98-107); Glucose 103 mg/dL (75-100); Potassium 3.9 mmol/L (3.6-5.0); Sodium 141 mmol/L (137-145)
[2016-11-23] MEDS: PROVENTIL IH SCH (10:03)
[2016-11-23] MEDS: PROTONIX PO SCH (10:17)
[2016-11-23] MEDS: PEPCID IV SCH (10:19)
[2016-11-23] MEDS: TRICOR PO SCH (10:19)
== END 2016-11-23 15:46 | disposition home health service (06) | DRG 711 ==
LOC: OR 12:52 → 2B-SURG 13:08
PROVIDERS: ADMIT Internal Medicine; ATTEND Internal Medicine
PROC: 0VTB0ZZ Resection of Left Testis, Open Approach (ICD-10-PCS; principal; 2016-11-21)
PROC: 0H9AXZZ Drainage of Inguinal Skin, External Approach (ICD-10-PCS; 2016-11-21)
DX: N49.2 Inflammatory disorders of scrotum (principal); N17.0 Acute kidney failure with tubular necrosis; I10 Essential (primary) hypertension; J44.9 Chronic obstructive pulmonary disease, unspecified; E11.9 Type 2 diabetes mellitus without complications; E11.39 Type 2 diabetes mellitus with other diabetic ophthalmic complication; H40.9 Unspecified glaucoma; K21.9 Gastro-esophageal reflux disease without esophagitis; E78.5 Hyperlipidemia, unspecified; F17.210 Nicotine dependence, cigarettes, uncomplicated; E78.1 Pure hyperglyceridemia; Z82.49 Family history of ischemic heart disease and other diseases of the circulatory system
CPT/HCPCS: 36415; 80048; 80053; 82962; 85025; 85027; 85610; 85730; 86403; 86850; 86900; 86901; 87075; 87076; 87116; 87186; 88305; 94640; 94760; J1580; J1815; J2405; J2543; J2704; J2710; J2765; J3010; J3370; J7030; J7050